=== PATIENT | male | born 1990 ===

== ENCOUNTER 2021-05-31 13:57 | Emergency (ER) | payer SELFPAY | END 2021-05-31 16:43 | disposition left against medical advice (07) | LOC: ERS 13:57 | DX: Z53.21 Procedure and treatment not carried out due to patient leaving prior to being seen by health care provider (principal) ==

== ENCOUNTER 2021-06-01 18:03 | Observation (INO) | payer BC, SELFPAY ==
[~2021-06-01 18:03] MED LIST: Iopamidol-370 76% 500 ML 1 ML ONE
[2021-06-01 19:11] LABS: #Eosinphils 0.2 thou/uL (0.0-0.7); #Lymphocytes 2.1 thou/uL (1.20-3.40); #Monocytes 0.5 thou/uL (0.11-0.59); #Neutrophils 2.6 thou/uL (1.40-6.50); %Basophils 0.7 % (0.0-1.0); %Eosinophils 4.5 % (0.0-10.0); %Monocytes 9.1 % (0.0-10.0); %Neutrophils 47.7 % (42.0-75.0); Hemoglobin 13.3 g/dL (14.0-18.0); Mean Corpuscular HGB CONC 34.2 g/dL (32.0-36.0); Mean Corpuscular Hemoglobin 30.4 pg (27.0-31.0); Mean Corpuscular Volume 89.1 fL (78.0-98.0); Mean Platelet Volume 6.4 fL (7.4-10.4); Platelet Count 211 thou/uL (130-400); RBC Distribution Width 11.9 % (11.5-14.5); Red Blood Cell (RBC) Count 4.36 mill/uL (4.70-6.10); White Blood Cell (WBC) Count 5.5 thou/uL (4.8-10.8)
[2021-06-01 19:34] LABS: ALT (SGPT) 17 U/L (8-55); AST (SGOT) 26 U/L (5-34); Alkaline Phosphatase 52 U/L (40-110); Anion Gap 9 mmol/L (10-20); BUN (Urea Nitrogen) 11 mg/dL (8.9-20.6); Bilirubin, Total 0.5 mg/dL (0.2-1.2); Calc. Creatinine Clearance 0 mL/min (70-130); Calcium 8.9 mg/dL (7.8-10.44); Carbon Dioxide 28 mmol/L (22-29); Chloride 106 mmol/L (98-107); Globulin 2.8 g/dL (2.4-3.5); Glucose 84 mg/dL (70-105); Potassium 3.9 mmol/L (3.5-5.1); Protein, Total 6.8 g/dL (6.0-8.3); Sodium 139 mmol/L (136-145)
[2021-06-01] MEDS ORDERED: Ondansetron ODT 4 MG TAB PO PRN (22:36)
[2021-06-01] MEDS ORDERED: Ondansetron PF 4 MG/2 ML Vial IVP PRN (22:36)
[2021-06-01] MEDS ORDERED: Acetaminophen 650 MG Suppository PR PRN (22:36)
[2021-06-01] MEDS ORDERED: Acetaminophen 325 MG TAB PO PRN (22:36)
[2021-06-01 23:10] VITALS: BMI 25.7
[2021-06-02 05:34] LABS: Hemoglobin A1c 5.8 % (4.0-6.0)
[2021-06-02 05:36] LABS: Anion Gap 7 mmol/L (10-20); BUN (Urea Nitrogen) 14 mg/dL (8.9-20.6); Calc. Creatinine Clearance 150 mL/min (70-130); Carbon Dioxide 28 mmol/L (22-29); Cardiac Risk 3.7 (Less than 4.5); Chloride 106 mmol/L (98-107); Cholesterol 162 mg/dl (< 200 Desired); Glucose 90 mg/dL (70-105); HDL Cholesterol 44 mg/dL (>60 Neg Risk); LDL Cholesterol, Calculated 100 mg/dL; Potassium 3.8 mmol/L (3.5-5.1); Sodium 137 mmol/L (136-145); Triglycerides 90 mg/dL (Less than 150)
[2021-06-02 05:50] LABS: PTT 35.2 sec (22.9-36.1)
[2021-06-02 05:51] LABS: INR-International Normal Ratio 1.1; Prothrombin Time 13.7 sec (12.0-14.7)
[2021-06-02 05:52] LABS: D-Dimer Test 1.44 *mcg/mL (0.27-0.43)
[2021-06-02 06:03] LABS: #Basophils 0.1 thou/uL (0.0-0.2); #Eosinphils 0.3 thou/uL (0.0-0.7); #Lymphocytes 2.2 thou/uL (1.20-3.40); #Monocytes 0.6 thou/uL (0.11-0.59); #Neutrophils 2.7 thou/uL (1.40-6.50); %Basophils 1.4 % (0.0-1.0); %Lymphocytes 37.9 % (21.0-51.0); %Monocytes 9.4 % (0.0-10.0); %Neutrophils 46.3 % (42.0-75.0); Hemoglobin 13.4 g/dL (14.0-18.0); Mean Corpuscular HGB CONC 34.1 g/dL (32.0-36.0); Mean Corpuscular Hemoglobin 30.3 pg (27.0-31.0); Mean Corpuscular Volume 88.8 fL (78.0-98.0); Mean Platelet Volume 6.7 fL (7.4-10.4); Platelet Count 202 thou/uL (130-400); Red Blood Cell (RBC) Count 4.41 mill/uL (4.70-6.10); White Blood Cell (WBC) Count 5.9 thou/uL (4.8-10.8)
[2021-06-02] MEDS ORDERED: Iopamidol-370 76% 500 ML 1 ML ONE (09:44)
[2021-06-02] MEDS: Aspirin 81 mg Enteric Coated Tablet PO SCH (09:51)
[2021-06-02] MEDS: Enoxaparin Sodium 40 MG/0.4 ML SYRINGE SC SCH (09:51)
[2021-06-02 10:28] LABS: INR-International Normal Ratio 1.1; Prothrombin Time 13.8 sec (12.0-14.7)
[2021-06-02 20:09] LABS: SARS-CoV-2 PCR NAA for Saliva Not Detected (NotDetected)
[2021-06-02] MEDS ORDERED: Atorvastatin Calcium 40 MG TAB PO SCH (21:00)
[2021-06-02] MEDS ORDERED: diphenhydrAMINE 50 MG/ML VIAL IVP SCH (21:00)
[2021-06-03 05:08] LABS: #Eosinphils 0.3 thou/uL (0.0-0.7); #Monocytes 0.4 thou/uL (0.11-0.59); %Basophils 0.2 % (0.0-1.0); %Eosinophils 6.5 % (0.0-10.0); %Lymphocytes 42.4 % (21.0-51.0); %Monocytes 9.3 % (0.0-10.0); %Neutrophils 41.6 % (42.0-75.0); Hemoglobin 14.8 g/dL (14.0-18.0); Mean Corpuscular HGB CONC 32.4 g/dL (32.0-36.0); Mean Corpuscular Hemoglobin 28.6 pg (27.0-31.0); Mean Corpuscular Volume 88.3 fL (78.0-98.0); Mean Platelet Volume 6.5 fL (7.4-10.4); Platelet Count 224 thou/uL (130-400); Red Blood Cell (RBC) Count 5.16 mill/uL (4.70-6.10); White Blood Cell (WBC) Count 4.7 thou/uL (4.8-10.8)
[2021-06-03 05:28] LABS: Anion Gap 10 mmol/L (10-20); BUN (Urea Nitrogen) 11 mg/dL (8.9-20.6); Calc. Creatinine Clearance 145 mL/min (70-130); Calcium 9.3 mg/dL (7.8-10.44); Carbon Dioxide 28 mmol/L (22-29); Chloride 104 mmol/L (98-107); Glucose 90 mg/dL (70-105); Sodium 138 mmol/L (136-145)
[2021-06-03] MEDS: Enoxaparin Sodium 40 MG/0.4 ML SYRINGE SC SCH (08:53)
[2021-06-03] MEDS: Aspirin 81 mg Enteric Coated Tablet PO SCH (08:54)
[2021-06-03 12:20] VITALS: BP 103/65; TEMP 97.5
[2021-06-05 12:26] LABS: Factor VIII Test 112.7 % ACTIVE (56-157)
[2021-06-05 12:38] LABS: Cardiolipin IgA Ab 3.2 APL-U/mL (<14 Negative); Cardiolipin IgG Ab 0.8 GPL-U/mL (<10 Negative); Cardiolipin IgM Ab 2.8 MPL-U/mL (<10 Negative); EliA APS New Method **** NEW METHOD ****
[2021-06-05 13:13] LABS: HEX PHOS LA Tube 1 43.5 SEC; HEX PHOS LA Tube 2 42.5 SEC
[2021-06-05 13:14] LABS: Protein C Activity 76 % (78-152)
[2021-06-22 20:08] LABS: Activated Protein C Resistance 2.7 ratio (.)
== END 2021-06-03 12:42 | disposition home or self-care (01) ==
LOC: ERS 18:03 → 3SE 19:44
PROVIDERS: ADMIT Student in an Organized Health Care Education/Training Program; ATTEND Nurse Practitioner Acute Care
DX: I63.81 Other cerebral infarction due to occlusion or stenosis of small artery (principal); G81.91 Hemiplegia, unspecified affecting right dominant side; R47.1 Dysarthria and anarthria; R26.0 Ataxic gait; R29.703 NIHSS score 3; R79.89 Other specified abnormal findings of blood chemistry; D64.9 Anemia, unspecified; J90 Pleural effusion, not elsewhere classified; I08.1 Rheumatic disorders of both mitral and tricuspid valves; Z20.822 Contact with and (suspected) exposure to COVID-19; Z91.041 Radiographic dye allergy status
CPT/HCPCS: 36415; 70496; 70498; 71275; 80048; 80053; 80061; 83036; 83090; 85025; 85240; 85300; 85303; 85305; 85307; 85379; 85598; 85610; 85730; 86147; 93005; 93306; 96372; 96374; G0378; J1200; J1650; Q9967; U0003; U0005